=== PATIENT | female | born 2000 | race Caucasian/White ===

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

== ENCOUNTER 2020-09-04 10:13 | Emergency (ER) | payer MEDICAID, OTHER ==
[~2020-09-04] VITALS: Ht 162.6 cm; Wt 65.0 kg
[2020-09-04] MEDS ORDERED: LIDOCAINE 5% TRANSDERMAL PATCH TD ONE (11:15)
[2020-09-04] MEDS ORDERED: IBUPROFEN 600 MG TABLET PO ONE (11:15)
[2020-09-04 11:51] LABS: GLUCOSE, URINE (UA) NEGATIVE (NEGATIVE); KETONES,URINE TRACE mg/dL (NEGATIVE); LEUKOCYTE ESTERASE ,URINE SMALL (NEGATIVE); NITRATE,URINE NEGATIVE (NEGATIVE); OCCULT BLOOD,URINE NEGATIVE (NEGATIVE); PROTEIN,URINE TRACE (NEGATIVE)
[2020-09-04 12:02] LABS: APPEARANCE,URINE HAZY (CLEAR); BILIRUBIN,URINE PRELIM. POSITIVE (NEGATIVE)
[2020-09-04 12:23] LABS: BACTERIA,URINE Moderate /HPF (None Seen); RBC,URINE 0-2 /HPF (0-2); SQUAMOUS EPITHELIAL CELL,UR Moderate /LPF (None Seen); TRIPLE PHOSPHATE CRYSTAL,UR Moderate /LPF (None Seen)
[2020-09-04 14:06] VITALS: BP 106/69
== END 2020-09-04 14:08 | disposition home or self-care (01) ==
LOC: EMS 10:17
DX: N39.0 Urinary tract infection, site not specified (principal)
CPT/HCPCS: 81001; 87086; 99283

== ENCOUNTER 2021-07-12 05:08 | Emergency (ER) | payer SELFPAY ==
[~2021-07-12] VITALS: Ht 160 cm; Wt 75.0 kg
[2021-07-12] MEDS ORDERED: KETOROLAC TROMETHAMINE 60 MG/2 ML VIAL IM ONE (07:15)
[2021-07-12] MEDS ORDERED: BACLOFEN 10 MG TABLET PO ONE (07:15)
[2021-07-12 07:54] VITALS: BP 122/76
[2021-07-12] MEDS ORDERED: IBUP-1554 PO (08:55)
[2021-07-12] MEDS ORDERED: BACL10TA PO (08:55)
== END 2021-07-12 09:12 | disposition home or self-care (01) ==
LOC: EMS 05:08
DX: S39.012A Strain of muscle, fascia and tendon of lower back, initial encounter (principal); X50.0XXA Overexertion from strenuous movement or load, initial encounter; Y93.89 Activity, other specified; Y92.89 Other specified places as the place of occurrence of the external cause; Y99.0 Civilian activity done for income or pay
CPT/HCPCS: 81025; 96372; 99283; J1885